=== PATIENT | male | born 1990 | race Caucasian/White ===

== ENCOUNTER 2017-03-26 00:50 | Emergency (ER) | payer OTHER ==
[2017-03-26 00:59] VITALS: BP 150/85
--- NOTE | 2017-03-26 01:04 | ED Physician Documentation ---
History of Present Illness - Stated complaint Stated Complaint: SPINNING - Chief complaint Chief Complaint: Neuro - History obtained from History obtained from: Patient - History of Present Illness Timing: How many days ago (2) Pain level now: 0 Improved by: no ameliorating factors Worsened by: no apparent exacerbating factors, but only happens when he is trying to sleep at night - Additonal information Additional information: c/o sudden onset dizziness, feels like things are "spinning", episodic when he is trying to sleep tonight and last night. He does not have the symptoms during the day. Review of Systems Eyes: denies: Loss of vision, Decreased vision Ears: denies: Loss of hearing, Ear pain, Tinnitus/ringing Nose: reports: Reviewed and negative GI: denies: Nausea, Vomiting Neurologic: denies: Generalized weakness, Focal weakness, Numbness, Headache PD PAST MEDICAL HISTORY - Past Medical History Past Medical History: No - Past Surgical History Past Surgical History: No - Present Medications Home Medications: Ambulatory Orders Medication Instructions Recorded Confirmed Loratadine [Claritin] 10 mg PO ONCE 03/26/17 03/26/17 Lorazepam [Ativan] 1 mg PO TID PRN #14 tablet 03/26/17 Meclizine [Antivert] 25 mg PO Q6H PRN #20 tablet 03/26/17 - Allergies Allergies/Adverse Reactions: Allergies Allergy/AdvReac Type Severity Reaction Status Date / Time No Known Drug Allergies Allergy Verified 03/26/17 00:59 - Social History Does the pt smoke?: Yes Smoking Status: Current every day smoker Does the pt drink ETOH?: Yes Does the pt have substance abuse?: No - Immunizations Immunizations are current?: Yes - POLST Patient has POLST: No PD ED PE NORMAL - Vitals Vital signs reviewed: Yes - General General: Alert and oriented X 3, No acute distress, Well developed/nourished - HEENT HEENT: PERRL, EOMI, Moist mucous membranes, Other (no nystagmus) - Neck Neck: Supple, no meningeal sign - Neuro Neuro: Alert and oriented X 3, 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, No motor deficit, No sensory deficit, Normal speech Results - Vitals Vitals: Vital Signs - 24 hr 03/26/17 00:57 Temperature 36.4 C L Heart Rate 72 Respiratory 16 Rate Blood Pressure 150/85 H O2 Saturation 98 Oxygen O2 Source Room air PD MEDICAL DECISION MAKING - ED course Complexity details: considered differential, d/w patient Departure - Departure Disposition: 01 Home, Self Care Clinical Impression: Dizziness Condition: Good Instructions: ED Dizziness UKO, ED Vertigo Unspecified Follow-Up: VASHTI Ayala [Provider Group] Prescriptions: Meclizine [Antivert] 25 mg PO Q6H PRN #20 tablet PRN Reason: Vertigo Lorazepam [Ativan] 1 mg PO TID PRN #14 tablet PRN Reason: Dizziness Discharge Date/Time: 03/26/17 01:41
[2017-03-26] MEDS ORDERED: MECLIZINE 12.5 MG TABLET PO STA (01:35)
[2017-03-26] MEDS ORDERED: MECLIZINE 12.5 MG TABLET PO ONE (01:37)
== END 2017-03-26 01:41 | disposition home or self-care (01) ==
LOC: ED 00:50
DX: R42 Dizziness and giddiness (principal); F17.200 Nicotine dependence, unspecified, uncomplicated
CPT/HCPCS: 99283; A9270